=== PATIENT | male | born 1980 | race Two or more races ===

== ENCOUNTER 2021-10-21 11:04 | Inpatient (IN) | payer OTHER ==
[~2021-10-21] VITALS: Ht 182.9 cm; Wt 163.3 kg
[2021-10-21] MEDS ORDERED: AMLODIPINE-OLM1 EAC2 (11:17)
[2021-10-21] MEDS ORDERED: ALLOPURINOL1 GM (11:18)
[2021-10-21] MEDS ORDERED: CHLORTHALIDONE25 MG (11:19)
[2021-10-27] MEDS ORDERED: AMOX-CLAV 875-1 EACH PO (11:03)
== END 2021-10-27 13:15 | disposition home or self-care (01) | DRG 392 ==
LOC: ER 11:04 → SURG 18:27 → SEC-K 18:27 → SURG 10-22 01:29 → SURH 10-24 14:20
PROVIDERS: ADMIT Surgery; ATTEND Surgery
PROC: BW2110Z Computerized Tomography (CT Scan) of Abdomen and Pelvis using Low Osmolar Contrast, Unenhanced and Enhanced (ICD-10-PCS; principal; 2021-10-21)
PROC: BW211ZZ Computerized Tomography (CT Scan) of Abdomen and Pelvis using Low Osmolar Contrast (ICD-10-PCS; 2021-10-26)
DX: K57.20 Diverticulitis of large intestine with perforation and abscess without bleeding (principal); Z68.42 Body mass index [BMI] 45.0-49.9, adult; N23 Unspecified renal colic; E66.01 Morbid (severe) obesity due to excess calories; I10 Essential (primary) hypertension; M10.9 Gout, unspecified